=== PATIENT | female | born 1975 | race Caucasian/White ===

== ENCOUNTER → 2019-07-21 | Outpatient (CLI) | payer BC, OTHER ==
--- NOTE | 2019-07-21 08:38 | RAD ---
ABDOMEN LTD History: Right upper quadrant pain. Comparison: None. Technique: Transabdominal ultrasound images are obtained of the right upper quadrant. Findings: Visualized pancreas is not well seen due to overlying bowel gas. Liver is normal in echogenicity. Portal flow is hepatopedal. Gallbladder has an unremarkable appearance. Common bile duct measures 4 mm in diameter. The right kidney measures 12.7 x 5.4 x 4.7 cm. No hydronephrosis. Visualized portions of the aorta and IVC have normal caliber. IMPRESSION: 1. Unremarkable right upper quadrant ultrasound. Electronically signed by: Ranjan Mathis DO (07/21/2019 8:35 AM) [id number]
== END ==
LOC: US 13:18
PROVIDERS: ATTEND Registered Nurse
DX: R10.11 Right upper quadrant pain (principal)
CPT/HCPCS: 76705